=== PATIENT | female | born 1995 | race Two or more races ===

== ENCOUNTER 2019-02-17 16:03 | Emergency (ER) | payer OTHER ==
--- NOTE | 2019-02-17 16:14 | ER Report ---
History and Physical Time Seen By MD: 16:14 HPI/ROS CHIEF COMPLAINT: Bad emotions HISTORY OF PRESENT ILLNESS: Pt states that she has bad emotions each year at spring time, "I am angry, upset, anxious, frustrated and sad". States that no one understands her "they cant feel my emotions so how can they understand". Pt states she has had these feelings each year around spring time and they seem to go away afterwards. Pt states it has been going on for 3 years "ever since they put me on an antibiotic 3 yrs ago this has been happening to me". PT denies suicidal thoughts. Pt denies homicidal thoughts. Pt states she used to be on an antidepressent years ago but stopped it because it was not working.Pt does not know the name of the antidepressent. Pt states she does not see a therapist because she does not have money to due so. REVIEW OF SYSTEMS: Constitutional: No fever, no chills. Eyes: No discharge. ENT: No sore throat, + chronic runny nose in spring Cardiovascular: No chest pain, no palpitations. Respiratory: No cough, no shortness of breath. Gastrointestinal: No abdominal pain, no vomiting. Genitourinary: No hematuria. Musculoskeletal: No back pain. Skin: No rashes. Neurological: No headache. Psych: +depressed, +anxious Allergies: Coded Allergies: No Known Drug Allergies (Unverified , 01/18/17) Home Meds No Active Prescriptions or Reported Meds Past Medical/Surgical History Pmhx: emotional disorder Pshx: noncontribuitory Smoking Status: Never Smoker Hx Alcohol Use: Yes Constitutional Vital Sign - Last 24 Hours 02/17/19 02/17/19 02/17/19 02/17/19 16:26 16:26 16:33 17:03 Pulse 97 112 95 Resp 14 B/P (MAP) 135/104 (114) Pulse Ox 91 95 97 O2 Delivery Room Air 02/17/19 02/17/19 02/17/19 17:08 17:38 17:44 Pulse 87 92 B/P (MAP) 148/105 (119) Pulse Ox 94 93 Physical Exam General Appearance: The patient is alert, has no immediate need for airway protection and no signs of toxicity. Eyes: Pupils equal and round no pallor or injection, EOMI ENT: no pharyngeal erythema or exudates, Mucous membranes are moist Respiratory: There are no retractions, lungs are clear to auscultation. Cardiovascular: Regular rate and rhythm. pulses are equal and symmetrical Gastrointestinal: Abdomen is soft and non tender, no masses, bowel sounds normal, no guarding, no rigidity or rebound Neurological: Cranial nerves II-XII grossly intact, no sensory or motor loss Skin: Warm and dry, no rashes. Musculoskeletal: Neck is supple non tender, no vertebral tenderness Extremities are non tender, nonswollen and have full range of motion. Psych: + anxious DIFFERENTIAL DIAGNOSIS: After history and physical exam differential diagnosis was considered for bipolar, depression, mood disorder Medical Decision Making Data Points Result Diagram: 02/17/19 1647 02/17/19 1647 Laboratory Hematology Test 02/17/19 00:00 02/17/19 16:47 Red Blood Count 5.34 M/uL (4.17-5.56) Mean Corpuscular Volume 92.2 fL (80.0-96.0) Mean Corpuscular Hemoglobin 31.8 pg (26.0-33.0) Mean Corpuscular Hemoglobin Concent 34.5 g/dL (32.0-36.0) Red Cell Distribution Width 13.2 % (11.5-14.5) Mean Platelet Volume 7.8 fL (7.2-11.1) Neutrophils (%) (Auto) 76.0 % (39.4-72.5) Lymphocytes (%) (Auto) 12.7 % (17.6-49.6) Monocytes (%) (Auto) 10.8 % (4.1-12.4) Eosinophils (%) (Auto) 0.1 % (0.4-6.7) Basophils (%) (Auto) 0.4 % (0.3-1.4) Nucleated RBC Relative Count (auto) 0.0 /100WBC Neutrophils # (Auto) 8.2 K/uL (2.0-7.4) Lymphocytes # (Auto) 1.4 K/uL (1.3-3.6) Monocytes # (Auto) 1.2 K/uL (0.3-1.0) Eosinophils # (Auto) 0.0 K/uL (0.0-0.5) Basophils # (Auto) 0.0 K/uL (0.0-0.1) Nucleated RBC Absolute Count (auto) 0.00 K/uL Sodium Level 144 mmol/L (137-145) Potassium Level 3.9 mmol/L (3.5-5.0) Chloride Level 109 mmol/L (98-107) Carbon Dioxide Level 22 mmol/L (22-31) Blood Urea Nitrogen 12 mg/dl (7-18) Creatinine 0.70 mg/dl (0.52-1.04) Glomerular Filtration Rate Calc > 60.0 Random Glucose 118 mg/dl (75-110) Calcium Level 10.1 mg/dl (8.4-10.2) Magnesium Level 2.1 mg/dl (1.7-2.2) Total Bilirubin 0.7 mg/dl (0.2-1.3) Aspartate Amino Transf (AST/SGOT) 20 U/L (0-35) Alanine Aminotransferase (ALT/SGPT) 24 U/L (0-56) Alkaline Phosphatase 57 U/L (0-126) Total Protein 8.4 g/dl (6.3-8.2) Albumin 5.4 g/dl (3.5-5.0) Salicylates Level < 10 mg/L Salicylate Last Dose Date unknown Acetaminophen Level < 10 ug/ml Serum Alcohol < 10 mg/dl Chemistry Test 02/17/19 00:00 02/17/19 16:47 White Blood Count 10.8 k/uL (4.5-11.0) Red Blood Count 5.34 M/uL (4.17-5.56) Hemoglobin 17.0 g/dL (12.0-16.0) Hematocrit 49.3 % (34.0-47.0) Mean Corpuscular Volume 92.2 fL (80.0-96.0) Mean Corpuscular Hemoglobin 31.8 pg (26.0-33.0) Mean Corpuscular Hemoglobin Concent 34.5 g/dL (32.0-36.0) Red Cell Distribution Width 13.2 % (11.5-14.5) Platelet Count 291 K/uL (150-450) Mean Platelet Volume 7.8 fL (7.2-11.1) Neutrophils (%) (Auto) 76.0 % (39.4-72.5) Lymphocytes (%) (Auto) 12.7 % (17.6-49.6) Monocytes (%) (Auto) 10.8 % (4.1-12.4) Eosinophils (%) (Auto) 0.1 % (0.4-6.7) Basophils (%) (Auto) 0.4 % (0.3-1.4) Nucleated RBC Relative Count (auto) 0.0 /100WBC Neutrophils # (Auto) 8.2 K/uL (2.0-7.4) Lymphocytes # (Auto) 1.4 K/uL (1.3-3.6) Monocytes # (Auto) 1.2 K/uL (0.3-1.0) Eosinophils # (Auto) 0.0 K/uL (0.0-0.5) Basophils # (Auto) 0.0 K/uL (0.0-0.1) Nucleated RBC Absolute Count (auto) 0.00 K/uL Glomerular Filtration Rate Calc > 60.0 Calcium Level 10.1 mg/dl (8.4-10.2) Magnesium Level 2.1 mg/dl (1.7-2.2) Total Bilirubin 0.7 mg/dl (0.2-1.3) Aspartate Amino Transf (AST/SGOT) 20 U/L (0-35) Alanine Aminotransferase (ALT/SGPT) 24 U/L (0-56) Alkaline Phosphatase 57 U/L (0-126) Total Protein 8.4 g/dl (6.3-8.2) Albumin 5.4 g/dl (3.5-5.0) Salicylates Level < 10 mg/L Salicylate Last Dose Date unknown Acetaminophen Level < 10 ug/ml Serum Alcohol < 10 mg/dl Toxicology Test 02/17/19 16:47 Salicylates Level < 10 mg/L Salicylate Last Dose Date unknown Acetaminophen Level < 10 ug/ml Serum Alcohol < 10 mg/dl Urinalysis Test 02/17/19 00:00 ED Course/Re-evaluation ED Course check labs and discuss with S 02/17/2019 5:45:50 pm Pt seen by [facility] and does not want to be admitted. Pt is not homicidal or suicidal. PT given numbers for follow up with therapist as out patient. 02/17/2019 6:00:55 pm PT requesting a numbner to call tomorrow to obtain her tsh levels. I did let her know of the patient portal however will also give her the emergency room numbner. Decision to Disposition Date: Feb 17, 2019 Decision to Disposition Time: 17:50 Depart Departure Latest Vital Signs Vital Signs Date Time Temp Pulse Resp B/P (MAP) Pulse Ox O2 Delivery O2 Flow Rate FiO2 02/17/19 17:44 148/105 (119) 02/17/19 17:38 92 93 02/17/19 16:26 14 Room Air Impression: Primary Impression: Behavioral disorder Condition: Condition Unchanged Disposition: HOME OR SELF-CARE Referrals: JULIAN JEFFERSON MD (PCP) [facility] 5 Days New Scripts No Active Prescriptions or Reported Meds Patient Instructions: GENERAL ER DISCHARGE INSTRUCTIONS Additional Instructions: It is important that you follow up with a therapist to help you with your emotions. If at anytime you feel unsafe and feel you need to be admitted to the behavioral health unit then please return to the emergency department. Your thyroid study will not be back until tomorrow. We will call you if your thyroid levels are abnormal. Emergency room [facility] [phone] MOISES ORDONEZ DO Feb 17, 2019 16:14
[2019-02-17 17:13] LABS: PLATELET COUNT, AUTOMATED 291 K/uL (150-450)
[2019-02-17 17:44] VITALS: BP 148/105
[2019-02-18] MEDS ORDERED: NORE0.352 PO (18:40)
== END 2019-02-17 18:15 | disposition home or self-care (01) ==
LOC: ER 16:19
DX: F91.9 Conduct disorder, unspecified (principal)
CPT/HCPCS: 80320; 80329; 82040; 82247; 82310; 82374; 82435; 82565; 82947; 83735; 84075; 84132; 84155; 84295; 84443; 84450; 84460; 84520; 84703; 85025; 99283

== ENCOUNTER 2019-02-18 08:50 | Emergency (ER) | payer OTHER ==
[2019-02-18 08:55] VITALS: BP 125/10
--- NOTE | 2019-02-18 09:29 | ER Report ---
History and Physical Time Seen By MD: 09:00 Hx. of Stated Complaint: STATES "I JUST DONT UNDERSTAND WHY I CANT SLEEP". SHE HAS HAD EMOTIONAL OUTBREAKS SINCE DEC THIS YEAR. SHE WANTS SOMEONE TO TALK THROUGH HER PAST BESIDES HER BOY FRIEND BUT SHE ALSO WANTS HER BOYFRIEND PRESENT FOR SUPPORT. STATES SHE HAS STARTED BEHAVIORAL MEDS BEFORE BUT STOPS THEM BECAUSE IT HURTS HER STOMACH. HPI/ROS CHIEF COMPLAINT: Feelings of persecution suicidal thoughts HISTORY OF PRESENT ILLNESS: 23-year-old female returns emergency department was seen here yesterday for feelings of persecution feelings of anxiety depressive disorder comes back today now she is feeling persecuted by her teachers she has rambling tangential thought thoughts of suicide or self-harm and wanted to kill herself no thoughts of homicidal behaviors. Patient states that she foils like she's a standing [employer] and understands her teachers or persecuting her that the grade should not matter that she didn't have to pay for bad grades this as I'll plan to try to hurt her and that she feels that potentially when she feels like this at killing himself as he only option. Patient has had issues in the past has been on medication unclear the last time she is on medication as her ability to acquire history is somewhat limited by her current mental status. I did speak to our admitting psychiatric doctors that she had a copies of workup done yesterday we'll simply had a urine and a urine toxicology and have her admitted as hopefully voluntary if not we will due to suicidal ideation have her put in as a title REVIEW OF SYSTEMS: Respiratory: No cough, no dyspnea. Cardiovascular: No chest pain, no palpitations. Gastrointestinal: No vomiting, no abdominal pain. Musculoskeletal: Remainder of the 14 system rev: Yes Allergies: Coded Allergies: No Known Drug Allergies (Unverified , 02/18/19) Home Meds No Active Prescriptions or Reported Meds Reviewed Nurses Notes: Yes Old Medical Records Reviewed: Yes Smoking Status: Never Smoker Hx Substance Use Disorder: No Hx Alcohol Use: Yes Constitutional Vital Sign - Last 24 Hours 02/18/19 08:55 Temp 99.6 Pulse 83 Resp 20 B/P (MAP) 125/10 Pulse Ox 95 O2 Delivery Room Air Physical Exam General Appearance: The patient is alert, has no immediate need for airway protection and no current signs of toxicity. [ ] Eyes: Pupils equal and round no injection. Respiratory: Chest is non tender, lungs are clear to auscultation. Cardiac: regular rate and rhythm [ ] Gastrointestinal: Abdomen is soft and non tender, no masses, bowel sounds normal. Musculoskeletal: Neck: Neck is supple and non tender. Extremities have full range of motion and are non tender. Skin: No rashes or lesions. Behavioral examination patient having flights of ideas tend gentle thoughts feelings of persecution denies hearing voices patient feels that people are out to get her paranoid type schizophrenia behaviors suicidal ideation without plan self-harm ideation as well DIFFERENTIAL DIAGNOSIS: After history and physical exam differential diagnosis was considered for paranoid schizophrenia and delusions feelings of persecution feelings of self-harm suicidal ideation Medical Decision Making ED Course/Re-evaluation ED Course Spoke to admitting M.D. on the psychiatric floor no further medical workup other than urinalysis and urine tox of be required. Patient will be admitted to our psychiatric unit as a voluntary admission if not we will go ahead and do a tidal due to suicidal ideation and thoughts of wanting to have self-harm patient be admitted to our behavioral health unit Decision to Disposition Date: Feb 18, 2019 Decision to Disposition Time: 09:28 Depart Departure Latest Vital Signs Vital Signs Date Time Temp Pulse Resp B/P (MAP) Pulse Ox O2 Delivery O2 Flow Rate FiO2 02/18/19 08:55 99.6 83 20 125/10 95 Room Air Impression: Primary Impression: Suicidal ideation Additional Impression: Paranoid delusion Condition: Condition Unchanged Disposition: XFER TO [facility] New Scripts No Active Prescriptions or Reported Meds Problem Qualifiers MAURICE WHITE MD Feb 18, 2019 09:28
[2019-02-18] MEDS ORDERED: NORE0.352 PO (18:40)
== END 2019-02-18 09:40 ==
LOC: ER 08:56
DX: R45.851 Suicidal ideations (principal); F22 Delusional disorders
CPT/HCPCS: 80305; 81001; 99284

== ENCOUNTER 2019-02-18 11:03 | Inpatient (IN) | payer OTHER ==
[~2019-02-18] VITALS: Ht 162.6 cm; Wt 72.6 kg
[2019-02-18] MEDS ORDERED: MAG HYD/AL HYD/SIMETH 30ML UDC PO PRN (11:35)
[2019-02-18] MEDS ORDERED: OLANZapine 10 MG VIAL IM ONLY PRN (11:35)
[2019-02-18] MEDS ORDERED: LORazepam 2 MG/ML VIAL IM PRN (11:35)
[2019-02-18] MEDS ORDERED: WATER STERILE 10 ML VIAL IM ONLY PRN (11:35)
[2019-02-18] MEDS ORDERED: ACETAMINOPHEN 325 MG TAB PO PRN (11:35)
[2019-02-18] MEDS ORDERED: OLANZapine 5 MG TAB PO ONE (11:55)
[2019-02-18] MEDS ORDERED: LORazepam 1 MG TAB PO ONE (11:55)
[2019-02-18 15:41] VITALS: BP 118/82
[2019-02-18] MEDS ORDERED: NORE0.352 PO (18:40)
--- NOTE | 2019-02-18 20:02 | HISTORY AND PHYSICAL ---
DATE OF ADMISSION: February 18, 2019 IDENTIFYING INFORMATION Lindsey Michael is a 23-year-old voluntary first admission to [facility]. PRESENTING PROBLEMS AND CHIEF COMPLAINT Lindsey presented to the Emergency Room initially on February 17 complaining of bad emotions, and "I'm angry, upset, anxious, frustrated, and sad." She was seen in the Emergency Room, but released since she did not want to be admitted to [facility], and she did not appear to be suicidal or homicidal at that time. Lindsey returned to the Emergency Room on the morning of 02/18/19 and was again assessed, but this time she was showing more agitation, and Dr. Arias was able to convince her to be admitted to [facility]. I first met with the patient on the morning of her admission, 02/18/19. At this time, she is extremely agitated and not even able to give a coherent history. She admits that she feels that there is something terribly wrong with her brain, like it is "inflamed." She admits to racing thoughts, terrible emotions, too many thoughts, and a fear of going insane. She also admits that she was having thoughts about suicide when she came to the Emergency Room. It was not possible to get much coherent history from Lindsey because of her confused thinking. I was only able to determine that she had been in therapy in high school and that she has not been recently taking any psychiatric medications. She denies any prior psychiatric hospitalizations or attempts at self-harm. She did admit that she has been using cannabis daily recently, hoping to calm herself down. We were able to get more psychiatric history from Lindsey's boyfriend, Corona, who accompanied her to the hospital. He lives with Lindsey and stated that her symptoms started about a week ago. She stopped sleeping and has been pacing relentlessly. In the last several days, he has been alarmed by her inability to even think clearly and has pressed her to come to the Emergency Room. He confirms that she typically takes no psychiatric medications. We also spoke with Lindsey's mother by phone, who is on her way to [place] from her home in [place]. Lindsey's mother said that while Lindsey had some depression in high school and had therapy and took an antidepressant, she has never had anything like this before. She has never been hospitalized for psychiatric care or attempted suicide. There is no family history of psychiatric illness. PAST MEDICAL HISTORY Also negative, and Lindsey has only recently started smoking cigarettes. SOCIAL HISTORY I learned from Lindsey's boyfriend and mother that she was born and raised in [place]. 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 SUBSTANCE USE Lindsey has been using cannabis daily since the onset of these symptoms. She denies other substances, and her boyfriend also says that she does not typically use any other drugs. PHYSICAL EXAMINATION VITAL SIGNS: On admission, Lindsey's temperature was 99.6, pulse 83, respirations 20, blood pressure is 125/100, and pulse oximetry is 95%. She received a physical examination in the Emergency Room, which showed no acute pathology. Please see Dr. Arias's note for further information. LABORATORY We repeated a serum hCG on admission to confirm that Lindsey is not . Her urinalysis was positive for ketones. Urine toxicology entirely negative with the exception of cannabinoids, consistent with her history of marijuana use. CBC done in the Emergency Room yesterday showed normal WBC count, but a preponderance of neutrophils. Hemoglobin was 17 and hematocrit 49. Chemistries showed a random glucose of 118, chloride 109, total protein high at 8.4, and albumin 5.4, but the other values were within normal limits. TSH was 0.49. MENTAL STATUS EXAMINATION This morning, Lindsey presents as a highly agitated young woman whose grooming is poor today. She was dressed in hospital scrubs when we met. Her attitude toward this examination was cooperative, but she was not able to give a coherent history. She is hyperalert and describes her mood as having "too many emotions." Her affect is also intense with psychomotor agitation. Speech is pressured. Thought processes are confused and tangential. She also affirms some thinking suggestive of psychosis including the feeling that she may be getting vague messages from "the DNA." Intelligence is judged to be above average based on her history of an advanced degree, and I am encouraged by her realization that there is something terribly wrong in her willingness to participate in treatment and take medications. ASSESSMENT Lindsey Michael is an intelligent young woman who is experiencing an acute manic episode characterized by nearly a week of insomnia, agitation, pressured speech, inability to concentrate, and now disorganized thinking. She has a supportive relationship with her boyfriend who is here to assist her in getting treatment, and her parents are also coming to [place] to help, which is encouraging. She is motivated to improve and willing to take medications. INITIAL PSYCHIATRIC DIAGNOSIS Bipolar I disorder with psychotic features, manic phase. PLAN Our first priority is to help Lindsey get some sleep. She is admitted to Behavioral Health and placed on the necessary precautions. I have ordered her Zyprexa 10 mg and Ativan 2 mg this afternoon. I will continue this this evening as tolerated. Tomorrow, we will begin discussion of treatment with either lithium or Depakote. We invited Lindsey's parents and boyfriend to return on Saturday for a treatment team meeting. We will begin education with both Lindsey as well as her family about her illness and what we can do for it. I estimate her length of stay will be about five to seven days. She is currently voluntary. [facility]
[2019-02-19 03:21] VITALS: BP 123/86
[2019-02-19] MEDS: LITHIUM CARBONATE 300 MG CAP PO SCH ×2 (09:51→20:44)
[2019-02-19 11:44] VITALS: BP 135/98
--- NOTE | 2019-02-19 13:45 | BHS Progress Note ---
[facility] - Subjective Progress Notes Subjective Lindsey slept most of the afternoon and through the night yesterday after 10 mgs of Zyprexa and 2 mgs of Ativan. She feels more rested and her affect is much better today. She has showered. Thoughts are still racing and mood still highly dysphoric but she is better. She is still tearful and preoccupied with school problems. Lindsey also admits to psychotic symptoms. I asked her about voices or other hallucinations, but she volunteered that she has been getting strange messages from teachers and seeing patterns in numbers. This strikes her as strange and troubling. Chin is ready to admit that she has a serious illness and feels that bipolar disorder is consistent with her symptoms. She is anxious to take medication to get better and to keep this from happening again. We talked about what to use. I suggested lithium carbonate and briefly reviewed the usual side effects. She will start it today at 300 mgs twice daily while continuing Zyprexa 10 mgs at night routine to help in the short term. Suicidal Ideation: None Homicidal Ideation: None [facility] - Objective Physical Exam Vital Signs Vital Signs 02/19/19 02/19/19 03:21 11:44 Temp 99.6 Pulse 85 Resp 15 B/P (MAP) 135/98 (110) Pulse Ox 95 O2 Delivery Room Air Muscle Strength and Tone: WNL Gait and Station: Steady [facility] Medications Reviewed: Side Effects, Benefits of Medication, Risks Allergies Reviewed: Yes Mental Status Exam General Appearance: Casual, Well Groomed, Good Eye Contact, Cooperative, Polite, Good Interaction, Psychomotor Agitation Speech: Clear, Spontaneous, Other (still pressured) Mood: Dysthmic/Depressed Affect: Sad, Tearful, Anxious, Agitated Thought Process: Flight of Ideas Thought Content: No Suicidal Ideation, No Homicidal Ideation; Other (seeing strange patterns in numbers) Cognition: Alert & Oriented-Person, Alert & Oriented-Place, Alert & Oriented- Time, Enmtd-Gevgnqmo-Vvjfnebnj Memory: Immediate, Recent, Remote Intelligence: Above Average Insight Judgment: Good [facility] Assessment and Plan [id number] Encounter Date: Feb 19, 2019 Iikg-kh-[id number] Encounter Time: 09:15 [facility] Plan: Admit to Unit, Necessary Precautions, Individual/Group Therapy, Admin/Titrate Meds, Educate Patient Problems: (1) Bipolar I disorder, single manic episode, severe with psychotic features Condition We are starting lithium this morning beginning with 300 mgs twice daily. Continue Zyprexa at hs. Will have a treatment team meeting tomorrow with family to discuss needs and diagnosis. KAMALA DELA CRUZ DO Feb 19, 2019 13:45
[2019-02-19] MEDS ORDERED: OLANZapine 5 MG TAB PO SCH (21:00)
[2019-02-20 04:44] VITALS: BP 125/83
--- NOTE | 2019-02-20 06:29 | NUR ---
At approximately 0600 PT came to the desk and requested a different reclining chair, due to the chair not staying reclined when she was sleeping in it, this tech told the patient that all of the chairs did the same thing. This tech asked the patient why she was not sleeping in the bed the patient told this tech that the bed was too soft. The patient asked for a yoga mat to sleep on, this tech gave her a yoga mat.
[2019-02-20] MEDS: LITHIUM CARBONATE 300 MG CAP PO SCH (08:19)
--- NOTE | 2019-02-20 15:27 | BHS Progress Note ---
[facility] - Subjective Progress Notes Subjective Yesterday, we started lithium and I gave Lindsey 5 mgs of Zyprexa at night. Today, she reports that she did not sleep well and staff confirms she was very restless. Mood is highly anxious with persistent racing thoughts. We met in treatment team this morning joined by Lindsey's boyfriend, Corona, as well as her parents Gianna and Dyllan Jeter who have driven here from [place] for Lindsey. We discussed her diagnosis and our plan of care. Lindsey is still seeing connections everywhere between things that are unrelated. For example, she thought that because another patient mentioned the television program, [employer], that there was a specific reference to her personally relating to the TV show. She is still preoccupied with with the biochemistry of her medications and their chemical properties with a general tendency to "over-think" every aspect of her environment, Groups are difficult for her and she wants to get up and write on the board but goes in a different directions that is not relevant to the topic. We talked about lithium this morning focusing on it's use and common side effects as well as what to expect. I indicated that we are using Zyprexa in the short-term to help reduce her manic symptoms and help with sleep. Suicidal Ideation: None Homicidal Ideation: None [facility] - Objective Physical Exam Vital Signs Vital Signs 02/20/19 04:44 Temp 99.1 Pulse 81 Resp 15 B/P (MAP) 125/83 (97) Pulse Ox 95 O2 Delivery Room Air Muscle Strength and Tone: WNL Gait and Station: Steady [facility] Medications Reviewed: Side Effects, Benefits of Medication, Risks Allergies Reviewed: Yes Mental Status Exam General Appearance: Casual, Well Groomed, Good Eye Contact, Cooperative, P olite, Good Interaction, Tearful, Psychomotor Agitation Speech: Clear, Spontaneous, Other (still pressured) Mood: Dysthmic/Depressed, Hyperthymic Affect: Sad, Tearful, Anxious, Agitated Thought Process: Loose Associations, Flight of Ideas Thought Content: No Suicidal Ideation, No Homicidal Ideation, No Auditory Halllucinations, No Visual Hallucinations; Ideas of Reference, Other (seeing connections between unrelated events) Cognition: Alert & Oriented-Person, Alert & Oriented-Place, Alert & Oriented-Time, Catad-Zousgjrg-Otsbtyhux Memory: Immediate, Recent, Remote Intelligence: Above Average Insight Judgment: Good [facility] Assessment and Plan [id number]-[id number] Encounter Date: Feb 20, 2019 Vorj-[id number] Encounter Time: 09:52 S Plan: Admit to Unit, Necessary Precautions, Individual/Group Therapy, Admin/Titrate Meds, Educate Patient Problems: (1) Bipolar I disorder, single manic episode, severe with psychotic features Condition I am advancing lithium to 300 mgs in the morning and at noon and 600 mgs at night beginning tonight. Increase Zyprexa to 10 mgs tonight hoping for better sleep and quicker reduction in manic psychosis. Will check a lithium level on Saturday. KAMALA DELA CRUZ DO Feb 20, 2019 15:27
[2019-02-20] MEDS ORDERED: OLANZapine 5 MG TAB PO SCH (21:00)
[2019-02-20] MEDS ORDERED: LITHIUM CARBONATE 300 MG CAP PO SCH (21:00)
[2019-02-21] MEDS: LITHIUM CARBONATE 300 MG CAP PO SCH ×3 (08:18→20:50)
[2019-02-21 09:18] VITALS: BP 144/103
--- NOTE | 2019-02-21 10:39 | BHS Progress Note ---
[facility] - Subjective Progress Notes Subjective Chin continues to have pressured speech and some loose associations. Staff reports that she was thinking her parents were in the office here on the un[place]. She admits that she is hearing voices of boyfriend and parents. Did not sleep soundly last night. Was up until midnight and restless through the night. No problems so far with the lithium. Still has racing thoughts and some flight of ideas, but is better today than yesterday. Is very anxious to go home. I encouraged Chin to be patient and to allow her brain time to heal. Talked again about the course of bipolar disorder and where we are in this. Suicidal Ideation: None Homicidal Ideation: None [facility] - Objective Physical Exam Vital Signs Vital Signs 02/20/19 02/21/19 04:44 09:18 Temp 99.0 Pulse 104 Resp 15 B/P (MAP) 144/103 (117) Pulse Ox 96 O2 Delivery Room Air Muscle Strength and Tone: WNL Gait and Station: Steady [facility] Medications Reviewed: Side Effects, Benefits of Medication, Risks Allergies Reviewed: Yes Mental Status Exam General Appearance: Casual, Well Groomed, Good Eye Contact, Cooperative, Polite, Good Interaction, Tearful, Psychomotor Agitation Speech: Clear, Spontaneous, Normal Rhythm, Normal Volume, Normal Tone, Rambling, Other (still pressured) Mood: Dysthmic/Depressed, Hyperthymic Affect: Anxious, Agitated (better), Other (increased) Thought Process: Loose Associations, Flight of Ideas Thought Content: No Suicidal Ideation, No Homicidal Ideation; Auditory Halllucinations; No Visual Hallucinations; Other (seeing connections between unrelated events) Sensorium: Clear Cognition: Alert & Oriented-Person, Alert & Oriented-Place, Alert & Oriented- Time, Okmuw-Fsnfgnuy-Yjotbpwpz Memory: Immediate, Recent, Remote Intelligence: Above Average Insight Judgment: Fair [facility] Assessment and Plan Mqog-hq-Rpiv Encounter Date: Feb 21, 2019 Dgcx-dw-Hrpe Encounter Time: 10:20 [facility] Plan: Admit to Unit, Necessary Precautions, Individual/Group Therapy, Admin/Titrate Meds, Educate Patient Problems: (1) Bipolar I disorder, single manic episode, severe with psychotic features Assessment & Plan: Continue to advance lithium dose and do a level on Saturday. Increase Zyprexa to 12.5 mgs at bedtime. Condition Chin is slowly improving but not yet ready for discharge. We will continue to emphasize education about bipolar illness management. KMAALA DELA CRUZ DO Feb 21, 2019 10:39
[2019-02-21] MEDS ORDERED: OLANZapine 5 MG TAB PO SCH (21:00)
--- NOTE | 2019-02-21 21:34 | NUR ---
REPORT FROM MALATHI/MICHAEL. WILL ASSUME CARE OF PT AT THIS TIME. PT IN ROOM, HAD HER BOYFRIEND VISIT HER. C/O LEFT "KIDNEY PAIN". DENIES PAIN OR PROBLEMS WITH URINATION. PT JUST GOT OFF PHONE WITH BOYFRIEND ASKING HIM TO COME SEE HER, SHE "CANNOT SLEEP WITHOUT" HIM. STATED SHE WANTS TO "LAY" HER HEAD ON HIS LAP WITH HIM TALKING TO HER, TO HELP HER FALL ASLEEP. REMINDED PT SHE CAN NOT HAVE VISITORS AT THIS TIME. SHE CONTINUES TO ASK BOYFRIEND TO COME. PT TEARFUL AND TELLS HIM "I LOVE YOU", AND "I LOVE YOU MORE" MULTIPLE TIMES THROUGHOUT CONVERSATION. PT RETURNED BACK TO ROOM TO REST.
[2019-02-22] MEDS: LITHIUM CARBONATE 300 MG CAP PO SCH ×2 (08:44→20:26)
--- NOTE | 2019-02-22 11:21 | BHS Progress Note ---
[facility] - Subjective Progress Notes Subjective "It feels like it isn't really Easter and I'm afraid I"ve been here longer than I thought it was...is it 2019? It is warm outside so I think it must be April already and I've been here longer than I thought." "I really want to see my boyfriend because I want to propose to him." Client is tearful at times. Thought processed disorganized. She is taking medications as ordered. She denies suicidal thoughts. Reporting feeling anxious and missing her boyfriend. Suicidal Ideation: None Homicidal Ideation: None [facility] - Objective Physical Exam Vital Signs Vital Signs Date Time Temp Pulse Resp B/P (MAP) Pulse Ox O2 Delivery O2 Flow Rate FiO2 02/21/19 09:18 99.0 104 144/103 (117) 96 Room Air 02/20/19 04:44 15 Muscle Strength and Tone: WNL Gait and Station: Steady [facility] Medications Reviewed: Side Effects, Benefits of Medication, Risks Allergies Reviewed: Yes Mental Status Exam General Appearance: Casual, Well Groomed, Good Eye Contact, Cooperative, Polite, Good Interaction, Tearful, Psychomotor Agitation Speech: Clear, Spontaneous, Normal Rhythm, Normal Volume, Normal Tone, Rambling, Other (still pressured) Mood: Dysthmic/Depressed, Hyperthymic Affect: Sad, Anxious, Agitated (better), Other (increased) Thought Process: Loose Associations, Flight of Ideas Thought Content: No Suicidal Ideation, No Homicidal Ideation; Auditory Halllucinations; No Visual Hallucinations; Other (seeing connections between unrelated events) Sensorium: Clear Cognition: Alert & Oriented-Person, Alert & Oriented-Place; No Alert & Oriented-Time; Tzefz-Uodzsndt-Jvbsnlfvu Memory: Immediate, Recent, Remote Intelligence: Above Average Insight Judgment: Fair [facility] Assessment and Plan Vglh-nc-Ufpm Encounter Date: Feb 22, 2019 Innj-lm-Mrhg Encounter Time: 09:30 [facility] Plan: Admit to Unit, Necessary Precautions, Individual/Group Therapy, Admin/Titrate Meds, Educate Patient Problems: (1) Bipolar I disorder, single manic episode, severe with psychotic features Condition This is my first meeting with client. She was tearful at times with confused thoughts regarding time thinking that she had been here so long that it was now 2019 and not in fact . She was concerned because she felt that I looked like an old boss named "Gia" and she had to be redirected several times to who I was. We will continue with current medication plan and will continue with discharge planning. BRITTANIE RINCON NP Feb 22, 2019 11:21
[2019-02-22 13:10] VITALS: BP 118/64
[2019-02-22] MEDS: PSYLLIUM 28% 1 PACKET PO SCH (17:17)
--- NOTE | 2019-02-22 20:02 | NUR ---
REPORT FROM MALATHI/RN. WILL ASSUME CARE OF PT AT THIS TIME. PT IN OTHER TV ROOM, WATCHING TV. CAME UP TO [facility]ES [facility] CRYING, STATES SHE IS READY TO GO HOME. PT STATES SHE WANTS HER BOYFRIEND. GOLF CART MAKER GIVING SNACKS AND PT TURNED AROUND AND GOT A SNACK. STOPPED CRYING.
[2019-02-22] MEDS: OLANZapine 5 MG TAB PO SCH (20:29)
--- NOTE | 2019-02-22 20:45 | NUR ---
PT AGITATED AND WANTS TO GO HOME. PT CALLED HER BOYFRIEND AND TOLD HIM TO COME PICK HER UP. WILL GIVE NOC MEDS AT THIS TIME. PT DID NOT HAVE HER NAME KAELA. STATES SHE THREW IT AWAY. WENT TO [employer] AND EMPTIED ALL ON FLOOR TO FIND IT. COULD NOT FIND. SHE ASKED IF SHE CAN HAVE ART SUPPLIES. [employer] GAVE HER SUPPLIES AND SHE DUMPED THEM ON THE FLOOR AND DUMPED GLUE ON FLOOR. ALL SUPPLIED WHERE TAKEN AWAY. PT THEN TRIED TO CALL HER MOM. PHONE WAS BUSY AND SHE STARTED CRYING ASKING FOR HELP. ADVISED PT TO CALL BACK, AND SHE SHOULD LAY DOWN AND TRY TO GET SOME REST AND LET THE MEDICATIONS WORK. PT KNOCKING ON PTS DOORS, YELLING FOR "SARAH". PT CURRENTLY IN ROOM.
--- NOTE | 2019-02-23 02:00 | NUR ---
PT OUT OF ROOM AT [facility]URSES ST DEMANDING A "TALL GLASS OF WATER", PT WITH RAISED VOICE, DEMANDED "NOW" GRABBED THE CANDY CUP AND THREW IT. PT STATES SHE ALSO WANTED A "SWEATSHIRT" TO WEAR. LONG SLEEVE JACKET GIVEN TO PT. SEBASTIEN WAS ASKING FOR METAMUCIL BECAUSE SHE HAS NOT HAD A BM IN A WHILE. REASSURED PT SHE WILL GET THE MEDICATION AT 0900. SHE ALSO REQUESTED A ICE PACK. SEBASTIEN KNOCKED ON A PT'S DOOR AGAIN, LOOKING FOR SARAH. PT IS MUCH MORE AGITATED AT THIS TIME, CALLED PROCESS ENG AND GOT ORDER FOR ATIVAN 1MG Q6 PRN. ANOTHER PT CAME OUT OF THE ROOM STATING THAT SHE SEES "BANSHEE" IN HER ROOM AND SEBASTIEN REPLIED BACK TO HER THAT SHE "SEES THEM TOO"
[2019-02-23 02:04] VITALS: BP 107/92
[2019-02-23] MEDS: LORazepam 1 MG TAB PO PRN ×2 (03:00→14:16)
[2019-02-23] MEDS: PSYLLIUM 28% 1 PACKET PO SCH (08:10)
[2019-02-23] MEDS: LITHIUM CARBONATE 300 MG CAP PO SCH ×2 (08:10→20:49)
[2019-02-23 10:59] VITALS: BP 122/87
--- NOTE | 2019-02-23 15:13 | BHS Progress Note ---
[facility] - Subjective Progress Notes Subjective Pt seen in treatment team meeting with her boyfriend Corona and her mother present. After discussion and sign-out from weekend provider Ike Talbert and Nichol Clark and from nursing staff familiar with pt-- it is clear that pt is slowly getting better-- much improved from profound junior on admission. But pt remains very ill-- was up in the night last night, agitated, threw the candy dish, psychotic, knocking on other patient's doors asking for Corona. Today tearful, labile, anxious, says that any other person's voice hurts her ears and causes her thoughts to veloz, she feels overwhelmed and cannot tolerate the least bit of stimulation. Denies AH. C/O very poor sleep last night-- apparently only got 2 hours. Will give ativan 1 mg q HS along with zyprexa 15 mg standing dose. Today is only her second full day of total lithium 1200 mg, and today's am level was 0.5. Continue lithium 600 mg BID. Suicidal Ideation: None Homicidal Ideation: None [facility] - Objective Physical Exam Vital Signs Vital Signs 02/23/19 10:59 Temp 100.1 Pulse 100 Resp 18 B/P (MAP) 122/87 (99) Pulse Ox 94 O2 Delivery Room Air Muscle Strength and Tone: WNL Gait and Station: Steady [facility] Medications Reviewed: Side Effects, Benefits of Medication, Risks Allergies Reviewed: Yes Mental Status Exam General Appearance: Casual, Cooperative, Polite, Tearful, Psychomotor Agitation Speech: Clear, Spontaneous, Normal Rhythm, Normal Volume, Normal Tone, Rambling Mood: Dysthmic/Depressed, Hyperthymic Affect: Sad, Anxious, Agitated (mildly) Thought Process: Loose Associations Thought Content: No Suicidal Ideation, No Homicidal Ideation; Delusions; No Auditory Halllucinations, No Visual Hallucinations, No Thought Broadcasting, No Ideas of Reference, No Obsessions, No Compulsions; Other (seeing connections between unrelated events) Sensorium: Clear Cognition: Alert & Oriented-Person, Alert & Oriented-Place; No Alert & Oriented-Time; Tgfuj-Zvvkfbyv-Ilcwbttmi Memory: Immediate, Recent, Remote Intelligence: Above Average Insight Judgment: Fair [facility] Assessment and Plan Xzoc-xj-Zukh Encounter Date: Feb 23, 2019 Cmuj-jg-Fboi Encounter Time: 10:30 [facility] Plan: Admit to Unit, Necessary Precautions, Individual/Group Therapy, Admin/Titrate Meds, Educate Patient Tobacco Medications: Not Appropriate Condition Multpiple Antipsychotics Used: No Problems: (1) Bipolar I disorder, single manic episode, severe with psychotic features OSWALDO KUHN MD Feb 23, 2019 15:13
--- NOTE | 2019-02-23 17:35 | NUR ---
Pt mother came to nurses desk asking what she was given today "because she is dizzy and feeling foggy" This nurse stated She was given Ativan 1mg. Why? Because she became agitated in group. Why was she in group, I didn't want her to be in group because it overstimulates her. This nurse stated I did not know I was not here this afternoon when this happened. Mom stated that she was upset with the therapist having her go to group, even though she told the therapist she wouldn't like her daughter to be in group. 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 The mom was upset by this and told us it was like an, "in your face" moment. Mom said, "I am not happy with the care here and I already contacted the [facility] in [place] where we live to see if we can get a second opinion because we are not happy with the care here. I left a message for a couple of doctors and talked to a triage nurse on the phone. I'm just waiting for the doctor to call back now and for a doc to doc to occur." This was discussed with the Therapist shortly after having the conversation with the mom. Therapist stated she was invited to group and chose on her own accord to go to group". Mom stated I don't like Ativan and I don't want it given to her except at night.
--- NOTE | 2019-02-23 20:33 | NUR ---
REPORT FROM BEV/RN. WILL ASSUME CARE OF PT AT THIS TIME. AT SHIFT CHANGE PT'S BOYFRIEND WAS WITH HER. SO IS NOW ISOLATING IN ROOM, LAYING DOWN. NO DISTRESS NOTED AT THIS TIME.
[2019-02-23] MEDS: OLANZapine 5 MG TAB PO SCH (20:48)
[2019-02-24 05:37] VITALS: BP 109/88
[2019-02-24] MEDS: PSYLLIUM 28% 1 PACKET PO SCH (08:31)
[2019-02-24] MEDS: LITHIUM CARBONATE 300 MG CAP PO SCH (08:31)
[2019-02-24] MEDS ORDERED: OLANZapine 5 MG TAB PO ONE (09:50)
[2019-02-24] MEDS ORDERED: LITH600C6 PO (09:50)
[2019-02-24] MEDS ORDERED: LITH300T18 PO (09:51)
[2019-02-24] MEDS ORDERED: PSYL3.4P2 PO (09:51)
[2019-02-24] MEDS ORDERED: OLAN15TA19 PO (09:52)
[2019-02-24] MEDS ORDERED: LORA-1456 PO (09:53)
[2019-02-24] MEDS ORDERED: OLAN5TAB25 PO (09:54)
--- NOTE | 2019-02-25 16:53 | [facility] Discharge Summary ---
[facility] Yrml-[id number] Encounter Date: Feb 24, 2019 Jdaw-bq-Rewi Encounter Time: 08:30 Reason-Hosp/Final Diag (DSM-V): (1) Bipolar I disorder, single manic episode, severe with psychotic features Hospital Course & Plan: DATE OF ADMISSION: February 18, 2019 IDENTIFYING INFORMATION Lindsey Michael is a 23-year-old voluntary first admission to [facility]. PRESENTING PROBLEMS AND CHIEF COMPLAINT Lindsey presented to the Emergency Room initially on February 17 complaining of bad emotions, and "I'm angry, upset, anxious, frustrated, and sad." She was seen in the Emergency Room, but released since she did not want to be admitted to [facility], and she did not appear to be suicidal or homicidal at that time. Lindsey returned to the Emergency Room on the morning of 02/18/19 and was again assessed, but this time she was showing more agitation, and Dr. Arias was able to convince her to be admitted to [facility]. I first met with the patient on the morning of her admission, 02/18/19. At this time, she is extremely agitated and not even able to give a coherent history. She admits that she feels that there is something terribly wrong with her brain, like it is "inflamed." She admits to racing thoughts, terrible emotions, too many thoughts, and a fear of going insane. She also admits that she was having thoughts about suicide when she came to the Emergency Room. It was not possible to get much coherent history from Lindsey because of her confused thinking. I was only able to determine that she had been in therapy in high school and that she has not been recently taking any psychiatric medications. She denies any prior psychiatric hospitalizations or attempts at self-harm. She did admit that she has been using cannabis daily recently, hoping to calm herself down. We were able to get more psychiatric history from Lindsey's boyfriend, Corona, who accompanied her to the hospital. He lives with Lindsey and stated that her symptoms started about a week ago. She stopped sleeping and has been pacing relentlessly. In the last several days, he has been alarmed by her inability to even think clearly and has pressed her to come to the Emergency Room. He confirms that she typically takes no psychiatric medications. We also spoke with Lindsey's mother by phone, who is on her way to [place] from her home in [place]. Lindsey's mother said that while Lindsey had some depression in high school and had therapy and took an antidepressant, she has never had a nything like this before. She has never been hospitalized for psychiatric care or attempted suicide. There is no family history of psychiatric illness. PAST MEDICAL HISTORY Also negative, and Lindsey has only recently started smoking cigarettes. SOCIAL HISTORY I learned from Lindsey's boyfriend and mother that she was born and raised in [place]. 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 SUBSTANCE USE Lindsey has been using cannabis daily since the onset of these symptoms. She denies other substances, and her boyfriend also says that she does not typically use any other drugs. PHYSICAL EXAMINATION VITAL SIGNS: On admission, Lindsey's temperature was 99.6, pulse 83, respirations 20, blood pressure is 125/100, and pulse oximetry is 95%. She received a physical examination in the Emergency Room, which showed no acute pathology. Please see Dr. Arias's note for further information. LABORATORY We repeated a serum hCG on admission to confirm that Lindsey is not . Her urinalysis was positive for ketones. Urine toxicology entirely negative with the exception of cannabinoids, consistent with her history of marijuana use. CBC done in the Emergency Room yesterday showed normal WBC count, but a preponderance of neutrophils. Hemoglobin was 17 and hematocrit 49. Chemistries showed a random glucose of 118, chloride 109, total protein high at 8.4, and albumin 5.4, but the other values were within normal limits. TSH was 0.49. MENTAL STATUS EXAMINATION This morning, Lindsey presents as a highly agitated young woman whose grooming is poor today. She was dressed in hospital scrubs when we met. Her attitude toward this examination was cooperative, but she was not able to give a coherent history. She is hyperalert and describes her mood as having "too many emotions." Her affect is also intense with psychomotor agitation. Speech is pressured. Thought processes are confused and tangential. She also affirms so me thinking suggestive of psychosis including the feeling that she may be getting vague messages from "the DNA." Intelligence is judged to be above average based on her history of an advanced degree, and I am encouraged by her realization that there is something terribly wrong in her willingness to participate in treatment and take medications. ASSESSMENT Lindsey Michael is an intelligent young woman who is experiencing an acute manic episode characterized by nearly a week of insomnia, agitation, pressured speech, inability to concentrate, and now disorganized thinking. She has a supportive relationship with her boyfriend who is here to assist her in getting treatment, and her parents are also coming to [place] to help, which is encouraging. She is motivated to improve and willing to take medications. INITIAL PSYCHIATRIC DIAGNOSIS Bipolar I disorder with psychotic features, manic phase. PLAN Our first priority is to help Lindsey get some sleep. She is admitted to [facility] and placed on the necessary precautions. I have ordered her Zyprexa 10 mg and Ativan 2 mg this afternoon. I will continue this this evening as tolerated. Tomorrow, we will begin discussion of treatment with either lithium or Depakote. We invited Lindsey's parents and boyfriend to return on Saturday for a treatment team meeting. We will begin education with both Lindsey as well as her family about her illness and what we can do for it. I estimate h er length of stay will be about five to seven days. She is currently voluntary. HOSPITAL COURSE [facility] After sleeping well her first night she was calmer and able to focus better the second day. Mood stabilizers were discussed and she agreed to start lithium 300 BID, and zyprexa 5 mg q HS. The second night her sleep was still poor and she still had racing thoughts, pressure of speech, and psychotic referential thinking, so zyprexa was increased to 10 mg q hs. [place] was well tolerated and was titrated up to 600 mg BID, with level AFTER 2 FULL DAYS (so not yet steady state) of 0.5. Ultimately pt's meds were zyprexa 15 mg q hs and lithium 600 mg BID, and these were effective and well tolerated. Pt's parents both drove out from their home in [place] and met with team several times, and pt's boyfriend also attended all treatment team meetings. Pt improved bit by bit each day, with improved sleep, concentration, and thought process became more logical and goal-directed. Pt's mother through most of pt's stay had expressed desire to bring pt back home to [facility] (and pt was in full agreement), where she could stay at home and follow-up with her primary care there and get referral to psychiatry, but she and family and pt all agreed to wait till pt safe for discharge before traveling home. By Saturday02/24/19 pt was stabilized to the point of safely leaving hospital. She and mother and I discussed Follow up. I called and spoke to DR. Madrid at the Clinic and she scheduled pt for out patient primary care appointment with appointment time to be delivered through her pt portal. Dr. Madrid will also send her a psychiatry appointment through the portal. Mother understands back up plan if she feels pt is decompensating is to go to psychiatric emergency room, (or nearest emergency room). I gave them my cell phone number if they have any questions until they get back home and meet with new psychiatrist. We discussed use of prn ativan 1 mg for anxiety, and prn zyprexa 5 mg for agitation. Mother and boyfriend will be with pt at all times to ensure safety. Pt was discharged in improved co ndition on 02/24/19. Physical Exam Latest Vital Signs Vital Signs 02/23/19 02/24/19 10:59 05:37 Temp 99.0 Pulse 108 Resp 18 B/P (MAP) 109/88 (95) Pulse Ox 95 O2 Delivery Room Air Mental Status Exam General Appearance: Casual, Well Groomed, Good Eye Contact, Cooperative, Polite, Good Interaction Speech: Clear, Spontaneous, Normal Rate (still rapid but much improved over admission), Normal Rhythm, Normal Volume, Normal Tone Mood: Dysthmic/Depressed, Other (anxious about getting discharged, wants to go home) Affect: Sad, Anxious Thought Process: Other (circumstantial overall; is able to be logical and goal directed to closed-ended questions) Thought Content: No Suicidal Ideation, No Homicidal Ideation, No Delusions, No Auditory Halllucinations, No Visual Hallucinations, No Thought Broadcasting, No Ideas of Reference, No Obsessions, No Compulsions Sensorium: Clear Cognition: Alert & Oriented-Person, Alert & Oriented-Place, Alert & Oriented- Time, Plfad-[id number]-[id number] Memory: Immediate, Recent, Remote Intelligence: Above Average Insight Judgment: Fair Departure Item Value Date Time White Blood Count 10.8 k/uL 02/17/19 1647 Red Blood Count 5.34 M/uL 02/17/19 1647 Hemoglobin 17.0 g/dL H 02/17/19 1647 Hematocrit 49.3 % H 02/17/19 1647 Mean Corpuscular Volume 92.2 fL 02/17/19 1647 Mean Corpuscular Hemoglobin 31.8 pg 02/17/19 1647 Mean Corpuscular Hemoglobin Concent 34.5 g/dL 02/17/19 1647 Red Cell Distribution Width 13.2 % 02/17/19 1647 Platelet Count 291 K/uL 02/17/19 1647 Sodium Level 144 mmol/L 02/17/19 1647 Potassium Level 3.9 mmol/L 02/17/19 1647 Chloride Level 109 mmol/L H 02/17/19 1647 Carbon Dioxide Level 22 mmol/L 02/17/19 1647 Blood Urea Nitrogen 12 mg/dl 02/17/19 1647 Creatinine 0.70 mg/dl 02/17/19 1647 Glomerular Filtration Rate Calc > 60.0 02/17/19 1647 Random Glucose 118 mg/dl H 02/17/19 1647 Calcium Level 10.1 mg/dl 02/17/19 1647 Magnesium Level 2.1 mg/dl 02/17/19 1647 Total Bilirubin 0.7 mg/dl 02/17/19 1647 Aspartate Amino Transf (AST/SGOT) 20 U/L 02/17/19 1647 Alanine Aminotransferase (ALT/SGPT) 24 U/L 02/17/19 1647 Alkaline Phosphatase 57 U/L 02/17/19 1647 Total Protein 8.4 g/dl H 02/17/19 1647 Albumin 5.4 g/dl H 02/17/19 1647 Thyroid Stimulating Hormone (TSH) 0.49 uIU/ml 02/17/19 1647 Human Chorionic Gonadotropin, Qual Negative 02/17/19 1647 Urine Color Straw 02/18/19 1033 Urine Clarity Clear 02/18/19 1033 Urine pH 7.0 pH 02/18/19 1033 Urine Specific [place] 1.002 02/18/19 1033 Urine Protein Negative mg/dL 02/18/19 1033 Urine Glucose (UA) Negative mg/dL 02/18/19 1033 Urine Ketones 20 mg/dL H 02/18/19 1033 Urine Blood Negative 02/18/19 1033 Urine Nitrite Negative 02/18/19 1033 Urine Bilirubin Negative 02/18/19 1033 Urine Urobilinogen Negative mg/dL 02/18/19 1033 Urine Leukocyte Esterase Negative 02/18/19 1033 Urine RBC None /HPF 02/18/19 1033 Urine WBC <1 /HPF 02/18/19 1033 Urine Squamous Epithelial Cells None /LPF 02/18/19 1033 Urine Bacteria Negative /HPF 02/18/19 1033 Urine Mucus None /HPF 02/18/19 1033 Urine HCG, Qualitative Negative 02/18/19 0000 Salicylates Level < 10 mg/L 02/17/19 1647 Salicylate Last Dose Date unknown 02/17/19 1647 Urine Opiates Screen Negative 02/18/19 1033 Acetaminophen Level < 10 ug/ml 02/17/19 1647 Urine Barbiturates Screen Negative 02/18/19 1033 Ur Tricyclic Antidepressants Screen Negative 02/18/19 1033 Urine Phencyclidine Screen Negative 02/18/19 1033 Urine Amphetamines Screen Negative 02/18/19 1033 Urine Benzodiazepines Screen Negative 02/18/19 1033 [place] Level 0.5 mmol/L L 02/23/19 0635 Urine Cocaine Screen Negative 02/18/19 1033 Urine Cannabinoids Screen Positive 02/18/19 1033 Serum Alcohol < 10 mg/dl 02/17/19 1647 Condition: Improved Discharge to: Home Discharge Instructions Home Meds Reported Medications Olanzapine (ZYPREXA) 5 Mg Tablet, 5 MG PO Q6H PRN for AGITATION 02/24/19 Lorazepam (ATIVAN) 1 Mg Tablet, 1 MG PO Q6H PRN for ANXIETY 02/24/19 Olanzapine (ZYPREXA) 15 Mg Tablet, 15 MG PO QHS 02/24/19 Psyllium Husk/Aspartame (METAMUCIL FIBER SINGLES PACKET) 3.4 Gm Powd.pack, 3.4 GM PO QDAY 02/24/19 [place] Carbonate (LITHIUM CARBONATE) 300 Mg Tablet, 600 MG PO BID 02/24/19 Norethindrone (NORETHINDRONE) 0.35 Mg Tablet, 1 TAB PO QDAY 02/18/19 Multpiple Antipsychotics Used: No Diet: Regular Activity: As Tolerated Special Instructions: Take medications as prescribed. Follow up with [facility]. Follow up with outpatient therapy. Call Crisis Line should symptoms return OSWALDO KUHN MD Feb 25, 2019 16:53
== END 2019-02-24 10:15 | disposition home or self-care (01) | DRG 885 ==
LOC: BHS 11:03
PROVIDERS: ADMIT Psychiatry & Neurology Psychiatry; ATTEND Psychiatry & Neurology Psychiatry
DX: F30.2 Manic episode, severe with psychotic symptoms (principal); G47.00 Insomnia, unspecified; Z55.8 Other problems related to education and literacy
CPT/HCPCS: 36415; 80178; 81025